=== PATIENT | male | born 1975 | race American Indian/Alaskan Native ===

== ENCOUNTER 2019-12-23 16:02 | Emergency (ER) | payer MEDICARE ==
--- NOTE | 2019-12-23 16:40 | Emergency Department Report ---
Blank Doc - Documentation Documentation: 44-year-old male that presents with hematuria and flank pain. HX with polycys tic kidney disease. This initial assessment/diagnostic orders/clinical plan/treatment(s) is/are subject to change based on patient's health status, clinical progression and re- assessment by fellow clinical providers in the ED. Further treatment and workup at subsequent clinical providers discretion. Patient/guardians urged not to elope from the ED as their condition may be serious if not clinically assessed and managed. Initial orders include: 1- Patient sent to [facility] for further evaluation and treatment 2- UA 3- labs
[2019-12-23 17:22] LABS: Bilirubin,Urine NEG (Negative); Blood,Urine MOD (Negative); Color,Urine Yellow (Yellow); Mucus,Urine FEW /HPF; Urobilinogen,Urine < 2.0 mg/dL (<2.0)
[2019-12-23 17:33] LABS: Hematocrit 38.8 % (35.5-45.6); Hemoglobin 12.2 gm/dl (11.8-15.2); Mean Corpuscular HGB Conc 32 % (32-34); Mean Corpuscular Volume 73 fl (84-94); Platelet Count 250 K/mm3 (140-440); Red Blood Count 5.35 M/mm3 (3.65-5.03); Red Cell Distribution Width 16.1 % (13.2-15.2)
[2019-12-23] MEDS ORDERED: ONDANSETRON 4 MG/2 ML INJ IV ONE (18:00)
[2019-12-23] MEDS ORDERED: HYDROmorphone 1 MG/1 ML INJ IV ONE ×2 (18:00→19:27)
[2019-12-23 18:06] LABS: Total Cells Counted 100
[2019-12-23 18:07] LABS: Anisocytosis 1+; Hypochromasia 1+
--- NOTE | 2019-12-23 18:22 | Emergency Department Report ---
ED Back Pain/Injury HPI - General Chief Complaint: Back Pain/Injury Stated Complaint: KIDNEY PAIN Time Seen by Provider: 12/23/19 16:38 Source: patient Limitations: No Limitations - History of Present Illness Initial Comments: 44-year-old male with a past medical history of polycystic kidney disease and hypertension status post kidney transplant presents to the hospital with co mplaints of constant severe left flank pain x3 days. Pain is sharp, aggravated with movement and palpation, no alleviating factors. Patient had blood in the urine last night which has since improved. He denies nausea, vomiting, dysuria, or fever. Similar symptoms in the past secondary to a ruptured cyst associated with his polycystic kidney disease. Patient states he has a ruptured cyst on av erage 1-2 times a year. Patient previously was on hemodialysis up until his renal transplant in April 2019. Retail Department Manager: Dr. Irene Alvarado. Transplant team affiliated with [facility] - Related Data Home Medications Medication Instructions Recorded Confirmed Last Taken amLODIPine 10 mg PO DAILY 11/25/14 03/28/16 11/24/14 labetaloL [Labetalol 200mg TAB] 200 mg PO BID 11/25/14 03/28/16 11/24/14 Previous Rx's Medication Instructions Recorded Last Taken Type chlorproMAZINE [Thorazine] 50 mg PO Q6H PRN #12 tablet 03/27/16 Unknown Rx Ciprofloxacin HCl [Ciprofloxacin 500 mg PO DAILY 10 Days tablet 03/30/16 Unknown Rx TAB] HYDROcodone/APAP 7.5-325 [[place] 1 each PO Q6HR PRN #15 tablet 12/23/19 Unknown Rx 7.5/325] Allergies Allergy/AdvReac Type Severity Reaction Status Date / Time hydralazine Allergy Vomiting Verified 11/25/14 08:58 ED Review of Systems ROS: Stated complaint: KIDNEY PAIN Other details as noted in HPI Comment: All other systems reviewed and negative ED Past Medical Hx - Past Medical History Previous Medical History?: Yes Hx Hypertension: Yes Hx Congestive Heart Failure: No Hx Diabetes: No Hx Renal Disease: Yes (polycystic kidney disease, ESRD in past) Hx Asthma: No Hx COPD: No Hx HIV: No - Surgical History Past Surgical History?: Yes Additional Surgical History: fistula Left upper arm. 1 kidney transplant - Social History Smoking Status: Never Smoker Substance Use Type: None - Medications Home Medications: Home Medications Medication Instructions Recorded Confirmed Last Taken Type amLODIPine 10 mg PO DAILY 11/25/14 03/28/16 11/24/14 History labetaloL [Labetalol 200mg TAB] 200 mg PO BID 11/25/14 03/28/16 11/24/14 History chlorproMAZINE [Thorazine] 50 mg PO Q6H PRN #12 tablet 03/27/16 Unknown Rx Ciprofloxacin HCl [Ciprofloxacin 500 mg PO DAILY 10 Days tablet 03/30/16 Unknown Rx TAB] HYDROcodone/APAP 7.5-325 [[place] 1 each PO Q6HR PRN #15 tablet 12/23/19 Unknown Rx 7.5/325] ED Physical Exam - General Limitations: No Limitations - Other Other exam information: General: No acute distress Head: Atraumatic Eyes: normal appearance ENT: Moist mucous membranes Neck: Normal appearance, no midline tenderness Chest: Clear to auscultation bilaterally CV: Regular rate and rhythm Abdomen: Soft, normal bowel sounds, postsurgical scars noted to abdomen. Left lower quadrant tenderness, nondistended, no rebound or guarding Back: Normal inspection, left CVA tenderness Extremity: Normal inspection, full range of motion Neuro: Alert O x 3, no facial asymmetry, speech clear, no gross motor sensory deficit Psych: Appropriate behavior Skin: No rash ED Course Vital Signs 12/23/19 12/23/19 12/23/19 16:38 18:40 19:00 Temperature 98.8 F Pulse Rate 79 71 58 L Respiratory 20 16 14 Rate Blood Pressure 143/91 Blood Pressure 165/99 137/99 [Right] O2 Sat by Pulse 97 99 Oximetry ED Medical Decision Making - Lab Data Result diagrams: 12/23/19 17:17 12/23/19 17:17 Lab Results 12/23/19 12/23/19 12/23/19 Range/Units 17:05 17:17 17:17 WBC 4.5 (4.5-11.0) K/mm3 RBC 5.35 H (3.65-5.03) M/mm3 Hgb 12.2 (11.8-15.2) gm/dl Hct 38.8 (35.5-45.6) % MCV 73 L (84-94) fl MCH 23 L (28-32) pg MCHC 32 (32-34) % RDW 16.1 H (13.2-15.2) % Plt Count 250 (140-440) K/mm3 [place] % (Auto) Finishing Area Operator Add Manual Diff Complete Total Counted 100 Seg Neuts % (Manual) 55.0 (40.0-70.0) % Band Neutrophils % 0 % Lymphocytes % (Manual) 25.0 (13.4-35.0) % Reactive Lymphs % (Man) 0 % Monocytes % (Manual) 17.0 H (0.0-7.3) % Eosinophils % (Manual) 2.0 (0.0-4.3) % Basophils % (Manual) 1.0 (0.0-1.8) % Metamyelocytes % 0 % Myelocytes % 0 % Promyelocytes % 0 % Blast Cells % 0 % Nucleated RBC % Not Reportable Seg Neutrophils # Man 2.5 (1.8-7.7) K/mm3 Band Neutrophils # 0.0 K/mm3 Lymphocytes # (Manual) 1.1 L (1.2-5.4) K/mm3 Abs React Lymphs (Man) 0.0 K/mm3 Monocytes # (Manual) 0.8 (0.0-0.8) K/mm3 Eosinophils # (Manual) 0.1 (0.0-0.4) K/mm3 Basophils # (Manual) 0.0 (0.0-0.1) K/mm3 Metamyelocytes # 0.0 K/mm3 Myelocytes # 0.0 K/mm3 Promyelocytes # 0.0 K/mm3 Blast Cells # 0.0 K/mm3 WBC Morphology Not Reportable Hypersegmented Neuts Not Reportable Hyposegmented Neuts Not Reportable Hypogranular Neuts Not Reportable Smudge Cells Not Reportable Toxic Granulation Not Reportable Toxic Vacuolation Not Reportable Dohle Bodies Not Reportable Pelger-Huet Anomaly Not Reportable Jerri Rods Not Reportable Platelet Estimate Not Reportable Clumped Platelets Not Reportable Plt Clumps, EDTA Not Reportable Large Platelets Not Reportable Giant Platelets Not Reportable Platelet Satelliting Not Reportable Plt Morphology Comment Not Reportable RBC Morphology Not Reportable Dimorphic RBCs Not Reportable Polychromasia Not Reportable Hypochromasia 1+ Poikilocytosis Not Reportable Anisocytosis 1+ Microcytosis Not Reportable Macrocytosis Not Reportable Spherocytes Not Reportable Pappenheimer Bodies Not Reportable Sickle Cells Not Reportable Target Cells Not Reportable Tear Drop Cells Not Reportable Ovalocytes Not Reportable Helmet Cells Not Reportable Liu-Cowlic Bodies Not Reportable [place] Rings Not Reportable Yoana Cells Not Reportable Bite Cells Not Reportable Crenated Cell Not Reportable Elliptocytes Not Reportable Acanthocytes (Spur) Not Reportable Rouleaux Not Reportable Hemoglobin C Crystals Not Reportable Schistocytes Not Reportable Malaria parasites Not Reportable Devin Bodies Not Reportable Hem Pathologist Commnt No Sodium 144 (137-145) mmol/L Potassium 3.0 L (3.6-5.0) mmol/L Chloride 102.2 (98-107) mmol/L Carbon Dioxide 26 (22-30) mmol/L Anion Gap 19 mmol/L BUN 40 H (9-20) mg/dL Creatinine 3.2 H (0.8-1.5) mg/dL Estimated GFR 25 ml/min BUN/Creatinine Ratio 13 % Glucose 113 H (75-100) mg/dL Calcium 7.0 L (8.4-10.2) mg/dL Urine Color Yellow (Yellow) Urine Turbidity Clear (Clear) Urine pH 6.0 (5.0-7.0) Ur Specific [place] 1.023 (1.003-1.030) Urine Protein 100 mg/dl (Negative) mg/dL Urine Glucose (UA) Neg (Negative) mg/dL Urine Ketones Neg (Negative) mg/dL Urine Blood Mod (Negative) Urine Nitrite Neg (Negative) Urine Bilirubin Neg (Negative) Urine Urobilinogen < 2.0 (<2.0) mg/dL Ur Leukocyte Esterase Neg (Negative) Urine WBC (Auto) 3.0 (0.0-6.0) /HPF Urine RBC (Auto) 29.0 (0.0-6.0) /HPF U Epithel Cells (Auto) 1.0 (0-13.0) /HPF Urine Mucus Few /HPF - Radiology Data Radiology results: report reviewed CT ABDOMEN AND PELVIS WITHOUT CONTRAST INDICATION: llq pain, hx of polycystic kidney dz and transplant CONTRAST: Without IV COMPARISON: 03/25/2016, report un available All CT scans at this location are performed using CT dose reduction for ALARA by means of automated exposure control. FINDINGS: The visualized lung bases now show mild diffuse increased interstitial markings in the lower lobes which may represent interstitial edema. Median sternotomy changes are noted. There is now bilateral moderate sclerosis in the superior aspects of both femoral heads which is an interval change. I do not see obvious femoral head collapse. No significant arthritic changes are noted in the hips. No other bony changes are seen. Moderate fatty paraumbilical right-sided hernia is again seen. Interval surgical changes noted in the right lower quadrant abdominal wall. No pneumoperitoneum is seen. The markedly abnormal kidneys on the patient's known adult polycystic kidney disease are again seen with innumerable bilateral cysts, many complex and many showing wall calcifications. No definite obstructive changes are seen. No highly suspicious renal lesion is identified. There is now a right pelvic transplanted kidney. No obstructive changes are seen and no calcu li or masses are noted in this transplanted kidney. The transplanted ureter shows no abnormalities. Urinary bladder appears within normal limits. Prostate is not significantly enlarged and seminal vesicles, thus showing cystic changes, are reasonably symmetric. The liver again shows innumerable cystic lesions. No pancreatic cysts are seen. Spleen and adrenals show no lesions. Gallbladder and bile ducts appear within normal limits. No significant lymphadenopathy is seen. A few small nodes are again seen in the upper retroperitoneum but are not significantly changed. No free fluid is noted. No focal inflammatory changes are seen. No evidence of bowel obstruction is noted. Appendix appears within normal limits. IMPRESSION: 1. No acute abnormalities are seen within the abdomen or pelvis 2. Polycystic disease involving both kidneys and the liver as above, similar to prior study in 2016 3. Interval pelvic kidney transplant with no obvious abnormality seen 4. Development of bilateral femoral head sclerosis which is consistent with avascular necrosis. I do not see collapse or fragmentation of the femoral heads. 5. Probable mild interstitial pulmonary edema - Medical Decision Making Patient states his creatinine baseline is as high as 2.6 and suspects he is dehydrated. Patient offered IV fluids but prefers to drink p.o. fluids instead. P.o. potassium provided for mild hypokalemia. CT does not show any acute findings. Incidental findings noted and discussed with patient for follow-up. Patient plans to follow-up with his health animal care specialist tomorrow and will be provided a copy of his results for follow-up. Incidental CT findings: pt denies hx of femoral avascular necrosis He also denies shortness of breath despite findings of mild pulm edema Follow-up advised - Differential Diagnosis Renal colic, ruptured cyst, diverticulitis Critical Care Time: No Critical care attestation.: If time is entered above; I have spent that time in minutes in the direct care of this critically ill patient, excluding procedure time. ED Disposition Clinical Impression: Polycystic kidney disease, Hematuria, LLQ abdominal pain, Hypokalemia, CRI (chronic renal insufficiency), History of kidney transplant Disposition: TO HOME OR SELFCARE Is pt being admited?: No Does the pt Need Aspirin: No Condition: Stable Instructions: Acute Hematuria (ED), Flank Pain (ED) Additional Instructions: Take the medication as prescribed. Follow-up with your doctor or doctor/clinic provided. Return if symptoms worsen as indicated by your discharge instructions. Take the copy of the results provided to your doctor for follow- up. Prescriptions: HYDROcodone/APAP 7.5-325 [[place] 7.5/325] 1 each PO Q6HR PRN #15 tablet PRN Reason: Pain Referrals: your, doctor [Other] - 2-3 Days Time of Disposition: 20:09
[2019-12-23 19:10] VITALS: BP 137/99
--- NOTE | 2019-12-23 19:10 | Cat Scan Report ---
CT ABDOMEN AND PELVIS WITHOUT CONTRAST INDICATION: llq pain, hx of polycystic kidney dz and transplant CONTRAST: Without IV COMPARISON: 03/25/2016, report unavailable All CT scans at this location are performed using CT dose reduction for ALARA by means of automated e xposure control. FINDINGS: The visualized lung bases now show mild diffuse increased interstitial markings in the lowe r lobes which may represent interstitial edema. Median sternotomy changes are noted. There is now bilateral moderate sclerosis in the superior aspect s of both femoral heads which is an interval change. I do not see obvious femoral head collapse. No s ignificant arthritic changes are noted in the hips. No other bony changes are seen. Moderate fatty paraumbilical right-sided hernia is again seen. Interval surgical changes noted in the right lower quadrant abdominal wall. No pneumoperitoneum is seen. The markedly abnormal kidneys on the patient's known adult polycystic kidney disease are again seen w ith innumerable bilateral cysts, many complex and many showing wall calcifications. No definite obstr uctive changes are seen. No highly suspicious renal lesion is identified. There is now a right pelvic transplanted kidney. No obstructive changes are seen and no calculi or masses are noted in this xie splanted kidney. The transplanted ureter shows no abnormalities. Urinary bladder appears within marilyn l limits. Prostate is not significantly enlarged and seminal vesicles, thus showing cystic changes, a re reasonably symmetric. The liver again shows innumerable cystic lesions. No pancreatic cysts are seen. Spleen and adrenals s how no lesions. Gallbladder and bile ducts appear within normal limits. No significant lymphadenopath y is seen. A few small nodes are again seen in the upper retroperitoneum but are not significantly ch anged. No free fluid is noted. No focal inflammatory changes are seen. No evidence of bowel obstructi on is noted. Appendix appears within normal limits. IMPRESSION: 1. No acute abnormalities are seen within the abdomen or pelvis 2. Polycystic disease involving both kidneys and the liver as above, similar to prior study in 2016 3. Interval pelvic kidney transplant with no obvious abnormality seen 4. Development of bilateral femoral head sclerosis which is consistent with avascular necrosis. I do not see collapse or fragmentation of the femoral heads. 5. Probable mild interstitial pulmonary edema Signer Name: Nilay Hughes MD Signed: 12/23/2019 7:06 PM Workstation Name: [id number]
[2019-12-23] MEDS ORDERED: POTASSIUM CHLORIDE ER 20 MEQ TAB PO ONE ×2 (19:21→19:27)
== END 2019-12-23 20:18 | disposition home or self-care (01) ==
LOC: ED 16:02
DX: Q61.3 Polycystic kidney, unspecified (principal); R31.9 Hematuria, unspecified; E87.6 Hypokalemia; I12.9 Hypertensive chronic kidney disease with stage 1 through stage 4 chronic kidney disease, or unspecified chronic kidney disease; N18.9 Chronic kidney disease, unspecified
CPT/HCPCS: 36415; 74176; 80048; 81001; 85007; 85025; 87086; 96374; 96375; 96376; 99284; J1170; J2405